=== PATIENT | male | born 1990 | race Caucasian/White ===

== ENCOUNTER 2019-04-27 06:33 | Emergency (ER) | payer SELFPAY ==
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
== END 2019-04-27 06:45 | disposition left against medical advice (07) ==
LOC: MW.ED 06:33
DX: T22.00XA Burn of unspecified degree of shoulder and upper limb, except wrist and hand, unspecified site, initial encounter (principal); T31.0 Burns involving less than 10% of body surface
CPT/HCPCS: 99283